=== PATIENT | female | born 1990 ===

== ENCOUNTER 2021-08-28 19:23 | Emergency (ER) | payer MEDICARE, SELFPAY ==
[2021-08-28 19:25] VITALS: BP 124/60; PULSE 74; RESP 16; TEMP 36.8; O2SAT 97; BMI 39.9
--- NOTE | 2021-08-28 20:06 | ED_ITS ---
HPI - Dental/Oral General Chief complaint: Dental/Oral Stated complaint: Dental pain, swollen face Time Seen by Provider: 08/28/21 19:57 History of Present Illness HPI Narrative: Patient complains of right-sided lower dental pain for several days and then noticed today she had some swelling around her right lower jaw, no difficulty breathing or swallowing no swelling under the tongue no fever Related Data Previous Rx's Medication Instructions Recorded acetaminophen 500 mg tablet 1,000 mg PO QID PRN #30 tab 08/28/21 amoxicillin 875 mg-potassium 1 tab PO Q12H 7 Days #14 tab 08/28/21 clavulanate 125 mg tablet (Augmentin) ibuprofen 600 mg tablet 600 mg PO Q6H PRN #20 tab 08/28/21 oxycodone 5 mg tablet 5 mg PO Q6H PRN #10 tab 08/28/21 Allergies Allergy/AdvReac Type Severity Reaction Status Date / Time No Known Allergies Allergy Verified 08/28/21 19:29 Review of Systems Verdana 4l Review of Systems: Verdana 4d Verdana 4d Positive for dental pain and facial swelling Negatives are no fever no chills no dizziness no weakness no headache no neck pain no difficulty breathing or swallowing no swelling under the tongue no drooling no chest pain no shortness of breathbreath Yes all other systems are reviewed and are negative PMFSH Past Medical History Source: nursing notes reviewed Medical History (Updated 08/28/21 @ 20:07 by LIDIA [place]) Asthma Social History Social History Advance Directives: No Advance Directives Information Provided: No Patient : No Physical Exam Verdana 4l Vital Signs: Verdana 4d Verdana 4d Vital Signs: Verdana 4d Verdana 4Bd Last Vital Signs Verdana 4d Metrology Technician New 4d Metrology Technician New 4d Temp 98.2 F 08/28/21 19:25 Metrology Technician New 4d Pulse 74 08/28/21 19:25 Metrology Technician New 4d Resp 16 08/28/21 19:25 BP 124/60 08/28/21 19:25 Pulse Ox 97 08/28/21 19:25 BMI result Body Mass Index 39.9 General appearance is no distress The sinuses are nontender The dental exam there is a right lower molar which is tender and decayed there is no fluctuant gum abscess there is no swelling under the tongue there is no trismus no drooling no impairment of breathing and swallowing the voice is normal Pharynx no redness swelling or exudate mucous membranes are moist Neck is supple The facial exam there is some soft tissue swelling without redness around the right side of the lower mandible, no fluctuance no break in the skin Respiratory no distress Extremities full range of motion x4 Course Course Course Narrative: Patient with dental infection is treated with Augmentin antibiotic and advised to follow closely with her dentist Discharge Plan Discharge Clinical Impression: Dental abscess Patient Disposition: Home, Self-Care Additional Instructions: You have a dental infection and need to see the dentist for so call the dentist on Monday We are giving you antibiotic Augmentin but even if swelling goes down and improves you still need dental care for the tooth Return to the ER any time any worse condition or any concerns Prescriptions: New amoxicillin-pot clavulanate [Augmentin] 875-125 mg tablet 1 tab PO Q12H 7 Days Qty: 14 0RF ibuprofen 600 mg tablet 600 mg PO Q6H PRN (Reason: pain) Qty: 20 0RF acetaminophen 500 mg tablet 1,000 mg PO QID PRN (Reason: pain) Qty: 30 0RF oxycodone 5 mg tablet 5 mg PO Q6H PRN (Reason: pain) Qty: 10 0RF Rx Instructions: Narcotic, no driving for 6 hours after taking this medication
[2021-08-28] MEDS: Amoxicillin/Potassium Clav 875 MG TABLET PO (20:15)
[2021-08-28] MEDS: Ibuprofen 600 MG TABLET PO (20:15)
== END 2021-08-28 20:51 | disposition home or self-care (01) ==
PROVIDERS: Emergency Provider Internal Medicine
DX: K04.7 Periapical abscess without sinus (principal); K08.89 Other specified disorders of teeth and supporting structures
CPT/HCPCS: 99283; 99284

== ENCOUNTER 2024-06-08 12:24 | Emergency (ER) | payer MEDICAID, SELFPAY ==
--- NOTE | 2024-06-08 12:50 | ED.SKABFB ---
HPI - Skin/Abscess/Foreign Bdy General Chief complaint: Skin/Abscess/Foreign Body Stated complaint: l armpit abscess Time Seen by Provider: 06/08/24 13:09 Source: patient Mode of arrival: ambulatory Limitations: no limitations History of Present Illness ED Provider: Qi Gabriel APRN HPI narrative: 34 yo female previously healthy here with complaints of left armpit abscess for several days. Patient reports history of same. She denies any fevers or chills. Related Data Previous Rx's ?Medication ?Instructions ?Recorded acetaminophen 500 mg tablet 1,000 mg (2 x 500 mg) PO QID PRN 08/28/21 pain #30 tabs amoxicillin 875 mg-potassium 1 tab PO Q12H 7 days #14 tabs 08/28/21 clavulanate 125 mg tablet (Augmentin) ibuprofen 600 mg tablet 600 mg PO Q6H PRN pain #20 tabs 08/28/21 oxycodone 5 mg tablet 5 mg PO Q6H PRN pain #10 tabs 08/28/21 sulfamethoxazole 800 1 tab PO BID 7 days #14 tabs 06/08/24 mg-trimethoprim 160 mg tablet (Bactrim DS) Allergies Allergy/AdvReac Type Severity Reaction Status Date / Time No Known Allergies Allergy Verified 06/08/24 12:52 Review of Systems Review of Systems: Yes all other systems are reviewed and are negative Constitutional: Constitutional: Reports no additional constitutional complaints, Denies body ache(s), Denies chills, Denies fever(s), Denies headache(s) and Denies weakness Eyes: Eyes: Reports no additional eye complaints and Denies change in vision ENT: Reports system reviewed and no additional complaints, except as documented, Denies dizziness, Denies headache(s), Denies nasal congestion, Denies nasal discharge and Denies neck pain Cardiovascular: Cardiovascular: Reports no additional cardiovascular complaints, Denies chest pain, Denies leg edema and Denies dyspnea Respiratory: Respiratory: Reports no additional respiratory complaints, Denies cough and Denies dyspnea Gastrointestinal: Gastrointestinal: Reports no additional gastrointestinal complaints, Denies abdominal pain, Denies diarrhea, Denies nausea and Denies vomiting Genitourinary: Genitourinary: Reports no additional female genitourinary complaints and Denies urinary incontinence Musculoskeletal: Musculoskeletal: Reports no additional musculoskeletal complaints, Denies back pain, Denies arthralgias, Denies joint swelling, Denies neck pain, Denies numbness and Denies tingling Integumentary/Breasts: Skin/Breast: Reports system reviewed and no additional complaints, except as docu, Reports swelling, Reports erythema and Denies rash Neurologic: Reports system reviewed and no additional complaints, except as documented, Denies Abnormal speech present, Denies dizziness, Denies headache(s), Denies numbness, Denies tingling and Denies weakness [facility] Past Medical History Attestation statement: The following information was validated with the patient. Source: old records reviewed and nursing notes reviewed Medical History Asthma Social History Social History Advance Directives: No Advance Directives Information Provided: No Physical Exam Vital Signs: Vital Signs: Last Vital Signs Temp 97.2 F 06/08/24 12:51 Pulse 87 06/08/24 12:51 Resp 18 06/08/24 12:51 BP 129/66 06/08/24 12:51 Pulse Ox 98 06/08/24 12:51 O2 Del Method Room Air 06/08/24 12:51 BMI result Body Mass Index 42.0 Const: General: cooperative, healthy appearing, comfortable and no acute distress Orientation/consciousness: patient oriented x3 Limitations: no limitations HEENT: Head: Yes normal to inspection Ears: hearing grossly normal bilaterally General nose exam: Normal external nose present Face and sinus: Yes normal facial exam Mouth: Normal oral and palatal mucosa present Throat: Yes posterior oropharynx normal Eyes: General: appearance normal, both eyes and all related structures Pupils: Equal, round and reactive pupils present Neck: Neck: Yes normal visual inspection Chest: Chest palpation & inspection: normal inspection of the chest Chest/axillae images: 1. Palpable medium-sized abscess with local erythema and swelling Resp: Effort & Inspection: normal respiratory effort Auscultation: clear to auscultation bilaterally Cardio: Rate: regular rate Rhythm: regular rhythm Peripheral pulses: Peripheral pulses 2+ throughout GI: Inspection: Yes normal to inspection Palpation (GI): Soft to palpation and nontender Auscultation: normal bowel sounds Back/Spine/Pelvis: Thoracic/Lumbar Spine: thoracic and lumbar spine normal to inspection Skin: General skin exam: no rashes or lesions noted Neuro: General: patient oriented x3, no focal motor deficits and normal sensation to monofilament Cranial nerves: Yes Equal, round and reactive pupils present Cognition (Neuro): normal cognition Speech: No Abnormal speech present Gait exam (Neuro): Normal gait present Motor exam (neuro): 5/5 motor strength present throughout Extrem: General: Yes normal to inspection Course Course Course Narrative: This is an RME performed by Tamar Walker CNP: Additional HPI, ROS, PE not included below will be deferred to primary provider. Patient is a 34-year-old female presents emergency department for evaluation of concern for an abscess to the left armpit, onset 2 days ago, progressively worsening. Increasing size and increase in pain. Admits to a history of prior in the past requiring incision and drainage but has been a few years. Plan: Will require incision and drainage Medications Administered Discontinued Medications Generic Name Dose Route Start Last Admin Trade Name Freq PRN Reason Stop Dose Admin Lidocaine HCl 2 ml 06/08/24 13:48 06/08/24 13:56 Lidocaine Hcl 1 % Mpf 2 Ml Vial INFILTRATI 06/08/24 13:49 2 ml ONCE ONE Administration Medical Decision Making Medical Decision Making MDM Narrative: 34 yo female previously healthy here with complaints of left armpit abscess for several days. Patient reports history of same. She denies any fevers or chills. Local medium sized abscess on exam See procedure note Will dc with antibiotic and recommendation return in 48 hours for wound check and packing removal Procedures Abscess I/D Site: other (Axilla) Side (if applicable): left Local Anesthetic: lidocaine 1% Amount of anesthesia used (mL): 4 Technique: incised with blade Sent for culture/gram staining?: No Irrigation: No Packing used?: iodoform Discharge Plan Discharge Clinical Impression: Abscess of skin or subcutaneous tissue Patient Disposition: Home, Self-Care Instructions: Abscess (ED) Additional Instructions: Return in 48 hours for packing removal and wound check Take Motrin or Tylenol for pain as needed Take the antibiotic as prescribed Prescriptions: New sulfamethoxazole-trimethoprim [Bactrim DS] 800-160 mg tablet 1 tab PO BID 7 Days Qty: 14 0RF No Action amoxicillin-pot clavulanate [Augmentin] 875-125 mg tablet 1 tab PO Q12H 7 Days Qty: 14 0RF ibuprofen 600 mg tablet 600 mg PO Q6H PRN (Reason: pain) Qty: 20 0RF acetaminophen 500 mg tablet 1,000 mg PO QID PRN (Reason: pain) Qty: 30 0RF oxycodone 5 mg tablet 5 mg PO Q6H PRN (Reason: pain) Qty: 10 0RF Rx Instructions: Narcotic, no driving for 6 hours after taking this medication Referrals: Physician,None [Primary Care Provider] - 1 week Stand Alone Forms: Work/School Release Print Language: Kosovan
[2024-06-08 12:51] VITALS: BP 129/66; PULSE 87; RESP 18; TEMP 36.2; O2SAT 98; BMI 42.0
[2024-06-08] MEDS: Lidocaine HCl 1 % MPF 2 ML VIAL INFILTRATI ×2 (13:56)
[2024-06-08 14:40] VITALS: BP 129/66; PULSE 87; RESP 18; TEMP 36.2; O2SAT 98
== END 2024-06-08 14:39 | disposition home or self-care (01) ==
PROVIDERS: Emergency Provider Emergency Medicine
DX: L02.412 Cutaneous abscess of left axilla (principal); J45.909 Unspecified asthma, uncomplicated; Z79.899 Other long term (current) drug therapy
CPT/HCPCS: 10060; 99282; 99284; J2003

== ENCOUNTER 2025-03-12 09:39 | Inpatient (IN) | payer MEDICAID, SELFPAY ==
--- NOTE | ~2025-03-12 | FL_ITS ---
EXAMINATION: FL GUIDANCE ONLY HISTORY: Right ureteral stone COMPARISON: Correlation is made with a CT of the abdomen and pelvis without contrast dated 03/12/2025. TECHNIQUE: Fluoroscopy time: 22.3 seconds. Cumulative Dose: 10.16 mGy. Images: 2. FINDINGS: Fluoroscopic spot films demonstrate placement of a right nephroureteral stent. FL/FL guidance in OR IMPRESSION: Fluoroscopy during procedure. Please see procedure report for additional information. Electronically signed by: Sawyer Lagos MD 03/14/2025 07:01 AM EDT
--- NOTE | ~2025-03-12 | CT_ITS ---
EXAMINATION: CT ABDOMEN PELVIS WITHOUT IV CONTRAST HISTORY: rule out right sided kidney stone COMPARISON: There are no prior studies available for comparison. TECHNIQUE: CT scan of the abdomen and pelvis was performed without contrast using standard departmental protocol. Coronal and sagittal reformatted images were generated and reviewed. Oral contrast material was not administered per department protocol. This CT exam was performed with one or more of the following dose reduction techniques: automated exposure control, adjustment of the mA and/or kV according to patient size, use of iterative reconstruction technique. DLP: 948 mGy-cm FINDINGS: LOWER CHEST: The visualized lung bases are clear. There is no pleural effusion. CARDIOVASCULATURE: The heart is normal in size. There is no pericardial effusion. LIVER: The liver is normal in size and contour. The liver has an unremarkable unenhanced appearance. GALLBLADDER / BILE DUCTS: The gallbladder is surgically absent. There is no intra or extrahepatic biliary ductal dilatation. SPLEEN: The spleen is normal in size and has an unremarkable unenhanced appearance. PANCREAS: The pancreas has an unremarkable unenhanced appearance. ADRENAL GLANDS: Unremarkable. KIDNEYS/RETROPERITONEUM: There is a punctate nonobstructing calculus at the lower pole of the right kidney. There is moderate right hydroureteronephrosis and perinephric soft tissue stranding secondary to a 3 mm UVJ calculus. No left renal calculi are identified. There is no left hydronephrosis. LYMPH NODES: No retroperitoneal lymphadenopathy is identified in the abdomen or pelvis. VASCULATURE: The abdominal aorta is normal in caliber. MESENTERY/PERITONEUM: No free fluid. No masses. There is no free intraperitoneal gas. STOMACH: The stomach is collapsed, limiting evaluation. SMALL BOWEL: The small bowel is normal in caliber. COLON: The colon is unremarkable. APPENDIX: Normal. URINARY BLADDER/PELVIC ORGANS: The urinary bladder is collapsed, limiting evaluation. The uterus and ovaries have an unremarkable unenhanced appearance. BONES / SOFT TISSUES: No suspicious bony or soft tissue abnormalities. CT/CT abdomen pelvis wo IV con IMPRESSION: Moderate right hydroureteronephrosis secondary to a 3 mm UVJ calculus. Additional punctate nonobstructing calculus at the lower pole of the right kidney. Electronically signed by: Sawyer Lagos MD 03/12/2025 11:53 AM EDT RP
[2025-03-12 09:43] VITALS: BP 146/72; PULSE 68; RESP 16; TEMP 36.8; O2SAT 96; BMI 39.4
--- NOTE | 2025-03-12 10:01 | ED.BACK ---
HPI - Back Pain/Injury General Chief Complaint: Back Pain/Injury Stated Complaint: R back pain Time Seen by Provider: 03/12/25 09:59 Source: patient Mode of arrival: ambulatory Limitations: no limitations History of Present Illness ED Provider: Parisa Bridges PA-C HPI Narrative: Patient seeks medical attention in emergency department today for evaluation of right side of flank pain that is associated with symptoms. Past medical history significant for kidney stone 15 years ago that passed on its own while she was . Patient states the pain was of sudden onset and woke up at 05:00 this morning. She reports positional changes makes no difference that she feels slightly nauseous and reports it as a proximally and Saima tendon it is colicky. She is not sure whether or not potentially could be a kidney stone. She is endorsing urgency but did not feel any painful urination or notice blood in it. She denies any falls or trauma does not feel like a muscle to her. She denies any vaginal symptoms are concern for STIs. She has not noticed any rashes. She has not tried to treat it in any way. No fevers or respiratory symptoms. Denies any abdominal discomfort no vomiting no diarrhea. She is able to tolerate PO fluids. Related Data Previous Rx's ?Medication ?Instructions ?Recorded acetaminophen 500 mg tablet 1,000 mg (2 x 500 mg) PO QID PRN 08/28/21 pain #30 tabs amoxicillin 875 mg-potassium 1 tab PO Q12H 7 days #14 tabs 08/28/21 clavulanate 125 mg tablet (Augmentin) ibuprofen 600 mg tablet 600 mg PO Q6H PRN pain #20 tabs 08/28/21 oxycodone 5 mg tablet 5 mg PO Q6H PRN pain #10 tabs 08/28/21 sulfamethoxazole 800 1 tab PO BID 7 days #14 tabs 06/08/24 mg-trimethoprim 160 mg tablet (Bactrim DS) Allergies Allergy/AdvReac Type Severity Reaction Status Date / Time No Known Allergies Allergy Verified 03/12/25 09:45 Review of Systems Review of Systems: Yes all other systems are reviewed and are negative [facility] Past Medical History Attestation statement: The following information was validated with the patient. Source: old records reviewed and nursing notes reviewed Medical History Asthma Social History Social History Advance Directives: No Advance Directives Information Provided: Yes Do you have a plan to hurt others: No Plan Physical Exam Vital Signs: Vital Signs: Last Vital Signs Temp 98.6 F 03/12/25 11:59 Pulse 60 03/12/25 11:59 Resp 20 03/12/25 11:59 BP 135/78 03/12/25 11:59 Pulse Ox 98 03/12/25 11:59 O2 Del Method Room Air 03/12/25 11:59 BMI result Body Mass Index 39.4 Const: General: cooperative, healthy appearing, no acute distress, well developed, alert, awake, Physically active and other (appears uncomfortable shaking leg and holding back) Nutritional Appearance: obese Limitations: no limitations HEENT: Head: Yes normal to inspection General nose exam: Normal external nose present Face and sinus: Yes normal facial exam Mouth: Normal oral and palatal mucosa present, lip normal, tongue normal and moist mucous membranes Throat: Yes posterior oropharynx normal Eyes: General: appearance normal, both eyes and all related structures Neck: Neck: Yes normal visual inspection Carotids: normal carotid upstroke Lymphatic: no lymphadenopathy noted Chest: Chest palpation & inspection: normal inspection of the chest and normal palpation of entire chest wall Resp: Effort & Inspection: normal respiratory effort and able to speak in complete sentences Auscultation: clear to auscultation bilaterally Cardio: Jugular venous distension: no JVD Rate: regular rate Rhythm: regular rhythm Peripheral pulses: Peripheral pulses 2+ throughout GI: Inspection: Yes normal to inspection and Yes Abdominal panniculus present Palpation (GI): Soft to palpation and No hepatosplenomegaly present Auscultation: normal bowel sounds Rectal Exam - Female: deferred : General: Yes bladder normal to palpation and Yes CVA tenderness on the right Bimanual exam- vagina & uterus: bladder normal to palpation Back/Spine/Pelvis: Back: CVA tenderness Thoracic/Lumbar Spine: thoracic and lumbar spine normal to inspection Skin: General skin exam: no rashes or lesions noted Medications Administered Discontinued Medications Generic Name Dose Route Start Last Admin Trade Name Freq PRN Reason Stop Dose Admin Acetaminophen 975 mg 03/12/25 10:05 03/12/25 10:15 Acetaminophen 325 Mg Tablet PO 03/12/25 10:06 975 mg ONCE ONE Administration Ketorolac Tromethamine 15 mg 03/12/25 10:05 03/12/25 10:17 Ketorolac Tromethamine 15 Mg/Ml Vial IM 03/12/25 10:06 15 mg ONCE ONE Administration Ondansetron HCl 4 mg 03/12/25 10:05 03/12/25 10:16 Ondansetron Odt 4 Mg Tab.Rapdis TRANSLINGU 03/12/25 10:06 4 mg ONCE ONE Administration Medical Decision Making Medical Decision Making [facility] Narrative: Well-appearing 35-year-old female with acute onset of right-sided flank pain that began approximately 5 hours ago upon waking up. Upon arrival to ED she is afebrile and nontoxic or ill-appearing. Vital signs stable. Past medical history significant for kidney stone. It does have a colicky like nature to it with urinary urgency kidney stone seems most likely at this point but were also consider pyelonephritis despite acute onset as well as UTI the bladder. No history of trauma not reproducible with certain movements this seems less likely to be musculoskeletal etiology. Abdomen is soft and nontender this is not felt to be related to intra-abdominal pathology of the hepatobiliary tract or colon. There is no rashes on her skin suggestive of shingles. We will provide analgesic control at this time with Toradol Tylenol and Zofran. CT of the abdomen and pelvis obtained to further evaluate for hydro versus stone. CBC is significant for leukocytosis with borderline left shift this could be in the setting of inflammation as well as infection but certainly still not consistent with sepsis she does not meet SIRS criteria. Urinalysis suggestive of infection versus inflammation with significant amount of blood in all amount of leukocytes present she does not have suprapubic tenderness this is likely due to kidney stone but we will update plan based on CT results. No GOYO., is negative. 1225: IMPRESSION: Moderate right hydroureteronephrosis secondary to a 3 mm UVJ calculus. Additional punctate nonobstructing calculus at the lower pole of the right kidney. Consult to urology placed. Plan to give patient 2 g of ceftriaxone to cover for infection as well as to admit to Medicine in the setting of an infected stone. Spoke to Dr. Prado who agreed to admitting patient and he plans to consult for procedure tomorrow with medicine team. Hospitalist consult placed they accepted the patient to Medicine discussed this overall presentation with the patient who agreed to plan. She endorses her pain as being low well-controlled not needing any opioid relief at this time. She remains afebrile and normotensive still not meeting sirs criteria. Blood cultures ordered prior to medication administration. Differential Diagnosis Differential Diagnoses: The differential diagnosis associated with the presentation includes See [facility] Admission/Observation Consideration of admission/observation: Escalation of care including admission/observation considered Consult Healthcare Provider Management of the patient was discussed with: Hospitalist and Principal Mechanical Engineer Dr. Prado, consulted and he will consult with medicine team for procedure tomorrow. Lab Data [facility] Lab Attestation statement: I reviewed the patient's lab results. 03/12/25 10:51 03/12/25 10:51 Labs: Lab Results 03/12/25 Range/Units 10:51 WBC 12.4 H (4.8-10.8) X10*3/uL RBC 4.07 L (4.20-5.50) X10*6/uL Hgb 13.2 (12.0-16.0) g/dl Hct 38.0 (37.0-47.0) % MCV 93.4 (80.0-98.0) fL MCH 32.4 (27.0-33.0) pg MCHC 34.7 (31.0-35.0) g/dl RDW 11.9 (11.0-16.0) % Plt Count 244 (160-400) X10*3/uL MPV 10.9 (9.4-12.3) fL Immature Gran % (Auto) 0.4 (0.0-0.4) % Neut % (Auto) 74.7 H (45-73) % Lymph % (Auto) 16.4 L (20-40) % [place] % (Auto) 7.7 (2-11) % Eos % (Auto) 0.5 (0-4) % Baso % (Auto) 0.3 (0-2) % Lymph # (Auto) 2.0 (1.2-4.9) X10*3/uL [place] # (Auto) 1.0 (0.1-1.2) X10*3/uL Eos # (Auto) 0.1 (0.0-0.4) X10*3/uL Baso # (Auto) 0.0 (0.0-0.2) X10*3/uL Abs Immat Gran (auto) 0.05 H (0.00-0.03) X10*3/uL Absolute Neuts (auto) 9.3 H (2.0-8.3) x10*3/uL Absolute Nucleated RBC 0.000 (0.0-0.012) X10*3/uL Nucleated RBC % (auto) 0.0 (0.0-0.2) /100WBC Sodium 144 (135-145) mmol/L Potassium 3.8 (3.3-5.1) mmol/L Chloride 113 H (96-108) mmol/L Carbon Dioxide 25 (22-29) mmol/L Anion Gap 10 L (12-20) BUN 10 (9-16) mg/dL Creatinine 0.63 (0.5-1.4) mg/dL Estim Creat Clear Calc 142.6 Estimated GFR > 60 Random Glucose 129 H (60-115) mg/dL Calcium 8.6 (8.4-10.2) mg/dL Total Bilirubin 0.8 (0.0-1.0) mg/dL AST 27 (5-31) U/L ALT 26 (0-31) U/L Alkaline Phosphatase 68 (39-117) U/L Total Protein 6.9 (6.5-8.0) g/dL Albumin 4.1 (3.5-5.0) g/dL Urine Color [place] A Urine Appearance Cloudy Urine pH 6.0 (5.0-9.0) Ur Specific [place] 1.015 (1.005-1.025) Urine Protein 30 (1+) H (Neg-Trace) mg/dL Urine Glucose (UA) Negative (Negative) mg/dL Urine Ketones Negative (Negative) mg/dL Urine Blood Large (3+) H (Negative) Urine Nitrite Negative (Negative) Ur Leukocyte Esterase Small (1+) H (Negative) Urine RBC >20 H (0-2) /HPF Urine WBC 11-20 H (0-5) /HPF Ur Squamous Epith Cells 3-5 (0-2) /HPF Urine Bacteria Trace (None Seen) Hyaline Casts 0-2 (0-2) /LPF Urine Test NEGATIVE (NEGATIVE) Independent Interpretation I performed an independent interpretation of an: CT Scan Interpretation: hydronephrosis right kidney, likely stone near bladder Radiology Impression Discussion of test interpretation with radiology: I have reviewed the radiologist's reading. Radiologist Impression: IMPRESSION: Moderate right hydroureteronephrosis secondary to a 3 mm UVJ calculus. Additional punctate nonobstructing calculus at the lower pole of the right kidney. Tests considered The following testing was considered but not selected: Would have considered CT of the abdomen and pelvis with contrast had patient's presentation been more consistent with other intra-abdominal pathology other than renal system. Discharge Plan Discharge Clinical Impression: Hydronephrosis with ureteral calculus, UTI (urinary tract infection) Patient Disposition: Admitted As Inpatient
--- OUTSIDE RECORDS SUMMARY | 2025-03-12 10:37 | XMS_ITS | Clinical Summary ---
Author Organization [employer] Address [address] [place] [address] Care Team Providers Care Meal Cook Name Role Phone Unavailable Primary Care Provider Unavailabl e Social History Tobacco Use Types Packs/Day Years Used Date Smoking Tobacco: Never Assessed Comments Unknown Sex and Gender Information Value Date Recorded Sex Assigned at Not on file Legal Sex Female 1:47 PM EST Gender Identity Not on file Sexual Orientation Not on file Plan of Treatment Health Maintenance Due Date Last Done Comments Depression Screening 1991 HIV Screening 1991 SDOH Screening 1991 Disability Screening 1991 Alcohol/Substance Use Screening 2003 Tobacco Screening 2003 Family Planning (PISQ) 2006 HPV Vaccines (1 - 3-dose series) 2006 Hepatitis C Screening 2009 DTaP/Tdap/Td Vaccines (1 - Tdap) 2010 Hepatitis B Vaccines (1 of 3 - 19+ 3-dose series) 2010 Pap Smear 01/23/2012 Cervical Cancer Screening 2021 HPV/Cotest 2021 COVID-19 Vaccine ( - 2023-2 5 season) 2024 Influenza Vaccine (#1) 2025 Zoster Vaccines (1 of 2) 2041 RSV Patients and Pa tients Aged 60 years or older (1 - 1-dose 75+ series) 2066 HIB Vaccines Aged Out No longer eligi ble based on patient's age to complete this topic Hepatitis A Vaccines Aged Out No long er eligible based on patient's age to complete this topic IPV Vaccines Aged Out No longer eligi ble based on patient's age to complete this topic Meningococcal B Vaccine Aged Out No l onger eligible based on patient's age to complete this topic Meningococcal Vaccine Aged Out No cj johana eligible based on patient's age to complete this topic Pneumococcal Vaccine: Pediat rics (0 to 5 Years) and At-Risk Patients (6 to 49) Years Aged Out No longer eligible b ased on patient's age to complete this topic RSV under 20 months Aged Out No longe r eligible based on patient's age to complete this topic Rotavirus Vaccines Aged Out No longer eligible based on patient's age to complete this topic
[2025-03-12 11:00] LABS: MANUAL DIFF FLAG NO
[2025-03-12 11:05] LABS: Hematocrit 38.0 % (37.0-47.0); Hemoglobin 13.2 g/dl (12.0-16.0); Imm Gran Abs Auto 0.05 X10*3/uL (0.00-0.03); Imm Gran Pct Auto 0.4 % (0.0-0.4); Lymphocytes Absolute Auto 2.0 X10*3/uL (1.2-4.9); Mean Corpuscular HGB Conc 34.7 g/dl (31.0-35.0); Mean Corpuscular Hemoglobin 32.4 pg (27.0-33.0); Mean Corpuscular Volume 93.4 fL (80.0-98.0); NRBC Abs Auto 0.000 X10*3/uL (0.0-0.012); NRBC Pct Auto 0.0 /100WBC (0.0-0.2); Platelet Count 244 X10*3/uL (160-400); Red Blood Count 4.07 X10*6/uL (4.20-5.50); White Blood Count 12.4 X10*3/uL (4.8-10.8)
[2025-03-12 11:08] LABS: UPreg QC Valid YES
[2025-03-12 11:09] LABS: Appearance Urine Cloudy; Glucose Urine UA Negative (Negative); PH 6.0 (5.0-9.0); Specific Gravity - Urine 1.015 (1.005-1.025); UMIC TRIGGER UACC YES
[2025-03-12 11:12] LABS: UACC Culture Trigger YES
[2025-03-12 11:19] LABS: Alanine Aminotransferase 26 U/L (0-31); Albumin Level 4.1 g/dL (3.5-5.0); Alkaline Phosphatase 68 U/L (39-117); Anion Gap 10 (12-20); Aspartate Amino Transferase 27 U/L (5-31); Blood Urea Nitrogen 10 mg/dL (9-16); Calcium 8.6 mg/dL (8.4-10.2); Carbon Dioxide 25 mmol/L (22-29); Chloride 113 mmol/L (96-108); Creatinine Clr Calc Pharmacy 142.6; Estimated Glomerular Filt Rate > 60; Potassium 3.8 mmol/L (3.3-5.1); Sodium 144 mmol/L (135-145); Total Protein 6.9 g/dL (6.5-8.0)
[2025-03-12 11:59] VITALS: BP 135/78; PULSE 60; RESP 20; TEMP 37; O2SAT 98
--- NOTE | 2025-03-12 12:54 | PC.NURSE ---
Per LIDIA Bridges no lactic at this time as pt does not meet full sepsis criteria. 22g IV access established in R dorsal hand, blood cultures x2 obtained, rocephin 2gm given per MAR
--- NOTE | 2025-03-12 13:04 | P.HPHOSP_ITS ---
History of Present Illness Date of Service: 03/12/25 Attending physician on admission: Foreign Hameed Chief Complaint: right flank pain This is a 35-year-old female with h/o asthma who presents to the emergency department with right flank pain. Onset of pain early this morning with associated urinary urgency. She denies any dysuria, fever, chills. In the emergency department workup was significant for leukocytosis of 12.4, urinalysis with 3+ blood and greater than [address] scan showed moderate right hydroureteronephrosis secondary to a 3 mm UVJ calculus. The emergency department discussed the case with the urology felt that the patient should be admitted to the medical service due to possible infection. She received a dose of IV ceftriaxone for possible infected stone in the decision was made to admit her for further management. Review of Systems 2 Review of Systems: Yes all other systems are reviewed and are negative Constitutional: Constitutional: Denies chills and Denies fever(s) Cardiovascular: Cardiovascular: Denies chest pain, Denies palpitations and Denies dyspnea Respiratory: Respiratory: Denies cough and Denies dyspnea Gastrointestinal: Gastrointestinal: Denies vomiting Endocrine: Endocrine: Denies palpitations [facility] Medical History Asthma Social History (Updated 03/12/25 @ 13:[address]) Alcohol intake: current Alcohol intake frequency: holidays/special occasions only Patient Tobacco Use Status: Current everyday Tobacco user Tobacco use type: Cigarette Substance Use Type: Marijuana Advance Directives: No Advance Directives Information Provided: Yes Do you have a plan to hurt others: No Plan Meds Allergies Allergy/AdvReac Type Severity Reaction Status Date / Time No Known Allergies Allergy Verified 03/12/25 09:45 Physical Exam 2 Vital Signs and Narrative: Vital Signs: Last Vital Signs Temp 98.6 F 03/12/25 11:59 Pulse 60 03/12/25 11:59 Resp 20 03/12/25 11:59 BP 135/78 03/12/25 11:59 Pulse Ox 98 03/12/25 11:59 O2 Del Method Room Air 03/12/25 11:59 BMI result Body Mass Index 39.4 Const: General: cooperative, comfortable, alert and awake Nutritional Appearance: obese Resp: Effort & Inspection: normal respiratory effort and able to speak in complete sentences Cardio: Rate: regular rate GI: Inspection: No distended Palpation (GI): Soft to palpation : Other: no CVA tenderness at this time, she states she did have pain there earlier Results Labs 03/12/25 10:51 03/12/25 10:51 Labs: Laboratory Results - last 24 hr 03/12/25 10:51 MCV 93.4 MCH 32.4 MCHC 34.7 RDW 11.9 Plt Count 244 MPV 10.9 Immature Gran % (Auto) 0.4 Neut % (Auto) 74.7 H Lymph % (Auto) 16.4 L [place] % (Auto) 7.7 Eos % (Auto) 0.5 Baso % (Auto) 0.3 Lymph # (Auto) 2.0 [place] # (Auto) 1.0 Eos # (Auto) 0.1 Baso # (Auto) 0.0 Abs Immat Gran (auto) 0.05 H Absolute Neuts (auto) 9.3 H Absolute Nucleated RBC 0.000 Nucleated RBC % (auto) 0.0 Anion Gap 10 L Estim Creat Clear Calc 142.6 Estimated GFR > 60 Random Glucose 129 H Calcium 8.6 Total Bilirubin 0.8 AST 27 ALT 26 Alkaline Phosphatase 68 Total Protein 6.9 Albumin 4.1 Urine Color Cloud A Urine Appearance Cloudy Urine pH 6.0 Ur Specific [place] 1.015 Urine Protein 30 (1+) H Urine Glucose (UA) Negative Urine Ketones Negative Urine Blood Large (3+) H Urine Nitrite Negative Ur Leukocyte Esterase Small (1+) H Urine RBC >20 H Urine WBC 11-20 H Ur Squamous Epith Cells 3-5 Urine Bacteria Trace Hyaline Casts 0-2 Urine Test NEGATIVE Imaging Radiologist's Impressions: Impressions Abdomen/Pelvis CT 03/12/25 10:25 IMPRESSION: Moderate right hydroureteronephrosis secondary to a 3 mm UVJ calculus. Additional punctate nonobstructing calculus at the lower pole of the right kidney. Electronically signed by: Sawyer Lagos MD 03/12/2025 11:53 AM EDT Assessment and Plan (1) Hydronephrosis with ureteral calculus: Status: Acute Plan This is a 35-year-old female with history of mild intermittent asthma who presents to the emergency department with right flank pain found to have obstructing right UVJ stone UTI and moderate right hydroureteronephrosis due to 3 mm UVJ obstructing stone No evidence of sepsis IV ceftriaxone Follow urine culture, blood cultures Urology consult for possible intervention. NPO at midnight IV fluid, pain control Mild intermittent asthma No acute exacerbation P.r.n. albuterol Tobacco use disorder Smoking cessation advised Declines NRT DVT prophylaxis-low risk-early ambulation, mechanical devices Quality Stroke Does the patient have a stroke diagnosis?: No VTE Prior VTE?: No VTE Risk Level:: Medical - low VTE Device Contraindication: N/A - Device Ordered VTE Drug Contraindication: Treatment Not Indicated
[2025-03-12] MEDS: Lactated Ringers 1,000 ML 125 ML IVCONT ×2 (13:29→20:39)
[2025-03-12 15:24] VITALS: RESP 16
[2025-03-12 15:26] VITALS: BP 138/89; PULSE 71; RESP 16; TEMP 36.6; O2SAT 99
--- NOTE | 2025-03-12 15:32 | PHA.MEDREC ---
Addendum entered by Kleber Molina [facility] 03/12/25 15:39: med rec reviewed Original Note: Pharmacy Consult ? Medication Reconciliation Pharmacy has completed the medication reconciliation. Pt states she just alternates between using Ibuprofen and Tylenol as needed for pain and takes nothing else at this time for medicaitons.
--- NOTE | 2025-03-12 16:00 | PC.NURSE ---
Assuming care of pt after transfer to OF unit. Arrives a&ox4, in NAD, denies any pain after MOP IVP. Fluids running through #22 R hand. Denies home medications. Aware of plan for care and diet requirements.
--- NOTE | 2025-03-12 16:30 | PM.UROCN ---
History of Present Illness Consult details Consult date: 03/12/25 Narrative: CC: Right distal ureteric stone 35-year-old female Presentation to emergency room with onset of pain early this morning. Associated with urinary urgency. Denies fever, chills, dysuria. UA shows 3+ blood, positive RBC, negative nitrite. WBC 12.4, calcium 8.6, creatinine 0.6 Imaging - CT moderate right hydroureteronephrosis secondary to a 3 mm UVJ calculus. Recommend admission to Medicine for antibiotics and medical expulsion attempt Will give single dose prednisone 20 mg If fails to pass stone overnight recommend intervention tomorrow afternoon Keep NPO after 2400 Review of Systems Constitutional: Constitutional: Reports as per HPI and Reports no additional constitutional complaints Cardiovascular: Cardiovascular: Reports as per HPI and Reports no additional cardiovascular complaints Respiratory: Respiratory: Reports as per HPI and Reports no additional respiratory complaints Gastrointestinal: Gastrointestinal: Reports as per HPI and Reports no additional gastrointestinal complaints Genitourinary: Genitourinary: Reports as per HPI Musculoskeletal: Musculoskeletal: Reports no additional musculoskeletal complaints and Reports as per HPI Neurologic: Reports system reviewed and no additional complaints, except as documented and Reports as per HPI [facility] Past Medical History Medical History Asthma Social History Social History (Updated 03/12/25 @ 13:[address]) Alcohol intake: current Alcohol intake frequency: holidays/special occasions only Patient Tobacco Use Status: Never used Tobacco Tobacco use type: Cigarette Substance Use Type: Marijuana Advance Directives: No Advance Directives Information Provided: Yes Do you have a plan to hurt others: No Plan Nutrition Risks: No Nutritional Risk Meds Allergies Allergy/AdvReac Type Severity Reaction Status Date / Time No Known Allergies Allergy Verified 03/12/25 09:45 Active Medications: Current Medications Acetaminophen (Acetaminophen 325 Mg Tablet) 650 mg PO Q6H PRN PRN Reason: Pain, Mild 1-3,fever,headache Calcium Carbonate (Calcium Carbonate 750 Mg Tab.Chew) 750 mg PO Q4H PRN PRN Reason: Heartburn Ceftriaxone Sodium (Ceftriaxone Sodium 1 Gm Vial) 1 gm IVPUSH Q24H [facility] Lactated Ringer's (Lr) 1,000 mls @ 125 mls/hr IVCONT .Q8H [facility] Last Admin: 03/12/25 13:29 Dose: 125 mls/hr Ketorolac Tromethamine (Ketorolac Tromethamine 15 Mg/Ml Vial) 15 mg IVPUSH Q6H PRN PRN Reason: Pain, Moderate(Pain Scale 4-6) Magnesium Hydroxide (Milk Of Magnesia 30 Ml Oral.Susp) 30 ml PO DAILY PRN PRN Reason: Constipation Melatonin (Melatonin 3 Mg Tablet) 6 mg PO BEDTIME PRN PRN Reason: Insomnia Morphine Sulfate (Morphine Sulfate 2 Mg/Ml Cartridge) 2 mg IVPUSH Q4H PRN; Protocol PRN Reason: Pain, Severe (Pain Scale 7-10) Last Admin: 03/12/25 15:24 Dose: 2 mg Prednisone (Prednisone 20 Mg Tablet) 20 mg PO DAILY [facility] Last Admin: 03/12/25 15:24 Dose: 20 mg Sodium Chloride (0.9 % Sodium Chloride Flush 3 Ml Syringe) 3 ml IVFLUSH QSHIFT [facility] Last Admin: 03/12/25 14:12 Dose: Not Given Home Medications ?Medication ?Instructions ?Recorded ?Confirmed ?Last Taken ?Type acetaminophen 500 mg tablet 1,000 mg PO Q6H PRN pain 03/12/25 03/12/25 Unknown History ibuprofen 200 mg tablet 400 mg PO Q8H PRN Pain 03/12/25 03/12/25 Unknown History Physical Exam Vital Signs: Vital Signs: Last Vital Signs Temp 98 F 03/12/25 15:26 Pulse 71 03/12/25 15:26 Resp 16 03/12/25 15:26 BP 138/89 03/12/25 15:26 Pulse Ox 99 03/12/25 15:26 O2 Del Method Room Air 03/12/25 15:26 BMI result Body Mass Index 39.4 Const: General: cooperative, healthy appearing, comfortable and no acute distress Orientation/consciousness: patient oriented x3 HEENT: Face and sinus: Yes normal facial exam Mouth: moist mucous membranes Neck: Neck: Yes normal visual inspection, Yes full ROM and Yes trachea midline Chest: Chest palpation & inspection: normal inspection of the chest Resp: Effort & Inspection: normal respiratory effort, able to speak in complete sentences and no respiratory distress GI: Inspection: Yes normal to inspection Back/Spine/Pelvis: Cervical Spine: normal cervical lordosis Thoracic/Lumbar Spine: thoracic and lumbar spine normal to inspection Skin: General skin exam: no rashes or lesions noted Neuro: General: patient oriented x3, tone normal and moves all extremities Extrem: General: Yes normal to inspection and Yes capillary refill normal Results Labs 03/12/25 10:51 03/12/25 10:51 Labs: Abnormal lab results 03/12/25 Range/Units 10:51 WBC 12.4 H (4.8-10.8) X10*3/uL RBC 4.07 L (4.20-5.50) X10*6/uL Neut % (Auto) 74.7 H (45-73) % Lymph % (Auto) 16.4 L (20-40) % Abs Immat Gran (auto) 0.05 H (0.00-0.03) X10*3/uL Absolute Neuts (auto) 9.3 H (2.0-8.3) x10*3/uL Chloride 113 H (96-108) mmol/L Anion Gap 10 L (12-20) Random Glucose 129 H (60-115) mg/dL Urine Color [place] A Urine Protein 30 (1+) H (Neg-Trace) mg/dL Urine Blood Large (3+) H (Negative) Ur Leukocyte Esterase Small (1+) H (Negative) Urine RBC >20 H (0-2) /HPF Urine WBC 11-20 H (0-5) /HPF Short CBC 03/12/25 Range/Units 10:51 WBC 12.4 H (4.8-10.8) X10*3/uL Hgb 13.2 (12.0-16.0) g/dl Hct 38.0 (37.0-47.0) % Plt Count 244 (160-400) X10*3/uL BMP 03/12/25 10:51 Sodium 144 Potassium 3.8 Chloride 113 H Carbon Dioxide 25 BUN 10 Creatinine 0.63 Calcium 8.6 Liver Function 03/12/25 Range/Units 10:51 Total Bilirubin 0.8 (0.0-1.0) mg/dL AST 27 (5-31) U/L ALT 26 (0-31) U/L Alkaline Phosphatase 68 (39-117) U/L Albumin 4.1 (3.5-5.0) g/dL Urine 03/12/25 Range/Units 10:51 Urine Color [place] A Urine Appearance Cloudy Urine pH 6.0 (5.0-9.0) Ur Specific [place] 1.015 (1.005-1.025) Urine Protein 30 (1+) H (Neg-Trace) mg/dL Urine Glucose (UA) Negative (Negative) mg/dL Urine Test NEGATIVE (NEGATIVE) All other labs normal. Assessment and Plan (1) Hydronephrosis with ureteral calculus: Status: Acute Plan Trial of stone passage Intervention if fails - Risks, benefits and alternatives to therapy were discussed. These include but are not limited to infection, bleeding, damage to local organs and tissues, need for further interventions. Anesthetic risks regarding cardiac arrhythmia, blood clots, and potential mortality were discussed. The patient understands the typical recovery time and the outpatient nature of the procedure. After consideration of these risks the patient gives full informed consent and they wish to move ahead with the procedure. Cystoscopy, right retrograde, right ureteroscopy with laser lithotripsy and stent placement Procedures Date of Service Date of Service: 03/12/25
[2025-03-13] VITALS (9 sets, daily range): BP systolic 114–145; BP diastolic 55–81; PULSE 65–115; RESP 12–18; TEMP 36.1–37.1; O2SAT 96–99; BMI 39.4
[2025-03-13] MEDS: Lactated Ringers 1,000 ML 125 ML IVCONT ×2 (04:33→13:43)
[2025-03-13 05:30] LABS: Hematocrit 36.2 % (37.0-47.0); Hemoglobin 12.5 g/dl (12.0-16.0); Mean Corpuscular HGB Conc 34.5 g/dl (31.0-35.0); Mean Corpuscular Hemoglobin 31.8 pg (27.0-33.0); Mean Corpuscular Volume 92.1 fL (80.0-98.0); NRBC Abs Auto 0.000 X10*3/uL (0.0-0.012); NRBC Pct Auto 0.0 /100WBC (0.0-0.2); Platelet Count 219 X10*3/uL (160-400); Red Blood Count 3.93 X10*6/uL (4.20-5.50); White Blood Count 8.3 X10*3/uL (4.8-10.8)
[2025-03-13 05:48] LABS: Anion Gap 10 (12-20); Blood Urea Nitrogen 6 mg/dL (9-16); Calcium 8.3 mg/dL (8.4-10.2); Carbon Dioxide 21 mmol/L (22-29); Chloride 113 mmol/L (96-108); Creatinine Clr Calc Pharmacy 160.5; Estimated Glomerular Filt Rate > 60; Potassium 4.1 mmol/L (3.3-5.1); Sodium 140 mmol/L (135-145)
--- NOTE | 2025-03-13 13:36 | MHC.CM.PN ---
Patient lives in an apt w/ her two teenagers. Functionally independent. Denies use of DME or services. PCP @ [facility] No HCP. CM provided education and offered assistance. Patient declines at this time. DP: Goal is home self care, do not anticipate the need for services. Mother to transport. CM will continue to follow.
--- NOTE | 2025-03-13 13:41 | HO.PM.IMPN ---
Subjective Subjective Date of Service: 03/13/25 Interval History: seen and examined this morning follow up for right hydro with UVJ stone right sided pain improving; no fever Review of Systems Review of Systems: Yes all other systems are reviewed and are negative Constitutional Constitutional: Denies chills and Denies fever(s) Cardiovascular Cardiovascular: Denies chest pain, Denies palpitations and Denies dyspnea Respiratory Respiratory: Denies cough and Denies dyspnea Endocrine Endocrine: Denies palpitations Physical Exam Vital Signs: Vital Signs: Last Vital Signs Temp 97.0 F 03/13/25 11:04 Pulse 77 03/13/25 11:04 Resp 12 03/13/25 11:04 BP 128/68 03/13/25 11:04 Pulse Ox 98 03/13/25 11:04 O2 Del Method Room Air 03/13/25 11:04 BMI result Body Mass Index 39.4 Const: General: cooperative, comfortable, alert and awake Nutritional Appearance: obese Orientation/consciousness: patient oriented x3 Resp: Effort & Inspection: normal respiratory effort and able to speak in complete sentences Cardio: Rate: regular rate GI: Inspection: No distended Palpation (GI): Soft to palpation : Other: no CVA tenderness Neuro: General: patient oriented x3 Objective Data Active Medications Acetaminophen (Acetaminophen 325 Mg Tablet) 650 mg PO Q6H PRN PRN Reason: Pain, Mild 1-3,fever,headache Calcium Carbonate (Calcium Carbonate 750 Mg Tab.Chew) 750 mg PO Q4H PRN PRN Reason: Heartburn Ceftriaxone Sodium (Ceftriaxone Sodium 1 Gm Vial) 1 gm IVPUSH Q24H [facility] Last Admin: 03/13/25 13:04 Dose: 1 gm Documented By: JAY Lactated Ringer's (Lr) 1,000 mls @ 125 mls/hr IVCONT .Q8H [facility] Last Admin: 03/13/25 04:33 Dose: 125 mls/hr Documented By: DAIANA Ketorolac Tromethamine (Ketorolac Tromethamine 15 Mg/Ml Vial) 15 mg IVPUSH Q6H PRN PRN Reason: Pain, Moderate(Pain Scale 4-6) Last Admin: 03/13/25 04:35 Dose: 15 mg Documented By: DAIANA Magnesium Hydroxide (Milk Of Magnesia 30 Ml Oral.Susp) 30 ml PO DAILY PRN PRN Reason: Constipation Melatonin (Melatonin 3 Mg Tablet) 6 mg PO BEDTIME PRN PRN Reason: Insomnia Morphine Sulfate (Morphine Sulfate 2 Mg/Ml Cartridge) 2 mg IVPUSH Q4H PRN; Protocol PRN Reason: Pain, Severe (Pain Scale 7-10) Last Admin: 03/13/25 11:21 Dose: 2 mg Documented By: JAY Ondansetron HCl (Ondansetron Hcl 4 Mg/2 Ml Vial) 4 mg IVPUSH Q6H PRN PRN Reason: Nausea and Vomiting Last Admin: 03/12/25 19:52 Dose: 4 mg Documented By: DAIANA Prednisone (Prednisone 20 Mg Tablet) 20 mg PO DAILY [facility] Last Admin: 03/13/25 08:31 Dose: 20 mg Documented By: RICARDA Sodium Chloride (0.9 % Sodium Chloride Flush 3 Ml Syringe) 3 ml IVFLUSH QSHIFT [facility] Last Admin: 03/13/25 08:26 Dose: Not Given Documented By: RICARDA Non-Admin Reason: IV Running Labs 03/13/25 03:50 03/13/25 03:50 Labs: Laboratory Results - last 24 hr 03/13/25 03:50 MCV 92.1 MCH 31.8 MCHC 34.5 RDW 11.8 Plt Count 219 MPV 11.8 Absolute Nucleated RBC 0.000 Nucleated RBC % (auto) 0.0 Anion Gap 10 L Estim Creat Clear Calc 160.5 Estimated GFR > 60 Random Glucose 136 H Calcium 8.3 L Microbiology Microbiology Results: Microbiology 03/12/25 Unknown Urine Culture - Final Urine clean catch - Clean Catch Midstream No growth. Assessment and Plan (1) Hydronephrosis with ureteral calculus: Status: Acute Plan This is a 35-year-old female with history of mild intermittent asthma who presents to the emergency department with right flank pain found to have obstructing right UVJ stone moderate right hydroureteronephrosis due to 3 mm UVJ obstructing stone No evidence of sepsis urine culture and blood cultures both negative to date Urology consult - plan for cystoscopy and stent placement continue IV abx for now, will discuss with urology IV fluid, pain control Mild intermittent asthma No acute exacerbation P.r.n. albuterol Tobacco use disorder Smoking cessation advised Declines NRT DVT prophylaxis-low risk-early ambulation, mechanical devices Quality Stroke Does the patient have a stroke diagnosis?: No VTE Prior VTE?: No VTE Risk Level:: Medical - low VTE Device Contraindication: N/A - Device Ordered VTE Drug Contraindication: Treatment Not Indicated
[2025-03-13] MEDS: Lactated Ringers 1,000 ML 80 ML IVCONT (14:13)
--- NOTE | 2025-03-13 15:03 | PC.NURSE ---
PATIENT WAITING IN PACU BED REPORT GIVEN TO DEAN RHODES.
--- NOTE | 2025-03-13 16:02 | P.PNUR_ITS ---
Subjective Subjective Date of Service: 03/13/25 Interval history: White count resolving Temperature down Moderate resolution of pain on right side Uncertain as to where the stone has passed Would still recommend cystoscopy with right retrograde possible ureteroscopy Physical Exam 2 Vital Signs: Vital Signs: Last Vital Signs Temp 97.5 F 03/13/25 14:09 Pulse 77 03/13/25 14:09 Resp 16 03/13/25 14:09 BP 132/69 03/13/25 14:09 Pulse Ox 98 03/13/25 14:09 O2 Del Method Room Air 03/13/25 14:09 BMI result Body Mass Index 39.4 Const: General: cooperative, healthy appearing, comfortable and no acute distress Orientation/consciousness: patient oriented x3 HEENT: Face and sinus: Yes normal facial exam Mouth: moist mucous membranes Neck: Neck: Yes normal visual inspection, Yes full ROM and Yes trachea midline Chest: Chest palpation & inspection: normal inspection of the chest Resp: Effort & Inspection: normal respiratory effort, able to speak in complete sentences and no respiratory distress GI: Inspection: Yes normal to inspection Back/Spine/Pelvis: Cervical Spine: normal cervical lordosis Thoracic/Lumbar Spine: thoracic and lumbar spine normal to inspection Skin: General skin exam: no rashes or lesions noted Neuro: General: patient oriented x3, tone normal and moves all extremities Extrem: General: Yes normal to inspection and Yes capillary refill normal Urology Results Labs 03/13/25 03:50 03/13/25 03:50 Labs: Laboratory Results - last 24 hr 03/13/25 03:50 WBC 8.3 RBC 3.93 L Hgb 12.5 Hct 36.2 L MCV 92.1 MCH 31.8 MCHC 34.5 RDW 11.8 Plt Count 219 MPV 11.8 Absolute Nucleated RBC 0.000 Nucleated RBC % (auto) 0.0 Sodium 140 Potassium 4.1 Chloride 113 H Carbon Dioxide 21 L Anion Gap 10 L BUN 6 L Creatinine 0.56 Estim Creat Clear Calc 160.5 Estimated GFR > 60 Random Glucose 136 H Calcium 8.3 L Progress Note: A&P Assessment and plan (1) Hydronephrosis with ureteral calculus: Status: Acute Plan Risks, benefits and alternatives to therapy were discussed. These include but are not limited to infection, bleeding, damage to local organs and tissues, need for further interventions. Anesthetic risks regarding cardiac arrhythmia, blood clots, and potential mortality were discussed. The patient understands the typical recovery time and the outpatient nature of the procedure. After consideration of these risks the patient gives full informed consent and they wish to move ahead with the procedure. Cystoscopy, right retrograde, right ureteroscopy with laser lithotripsy stent placement Time Spent With Patient Time: Total time managing care of this patient today ____ minutes. Progress Note: Quality Stroke Does the patient have a stroke diagnosis?: No
--- NOTE | 2025-03-13 16:02 | P.HPSUR_ITS ---
Pre-Procedural Eval Section A - 24 Hr Update-Section A only Date of Service: 03/13/25 The patient is an INPATIENT: Yes Changes since office visit: No Cold of Flu in the past 2 weeks, No New Medical Problems, No Changes in Medication and No Patient answered all questions The patient has been examined within 24 hours of the surgical procedure. The History & Physical has been completed within 30 days and I have reviewed it.: Yes Section B - Complete if H&P > 30 days Chief Complaint: [place] with obstructing stone Allergies: Allergies Allergy/AdvReac Type Severity Reaction Status Date / Time No Known Allergies Allergy Verified 03/12/25 09:45 Plan I have reviewed the history and physical and performed a pertinent physical examination on my patient. No changes have occurred unless specified. Time Spent With Patient Time: Total time managing care of this patient today ____ minutes.
--- NOTE | 2025-03-13 16:12 | HO.ANESPROP2 ---
[facility] Active Problems Active Problems: All Active Problems UTI (urinary tract infection) (Acute) Hydronephrosis with ureteral calculus (Acute) Past Medical History Medical History Asthma Family History Family history of problems with anesthesia: No Surgical History History of Problems with Anesthesia: No Social History Social History (Updated 03/12/25 @ 13:[address]) Household Members: Family Housing: House Are you a primary health care facility administrator to a significant other at home: No Do you presently have visiting nurse or other home services: No Alcohol intake: current Alcohol intake frequency: holidays/special occasions only Patient Tobacco Use Status: Current everyday Tobacco user Tobacco use type: Cigarette Second Hand Smoke Exposure: No Substance Use Type: Marijuana service: No Meds Allergies Allergy/AdvReac Type Severity Reaction Status Date / Time No Known Allergies Allergy Verified 03/12/25 09:45 Active Medications: Current Medications Acetaminophen (Acetaminophen 325 Mg Tablet) 650 mg PO Q6H PRN PRN Reason: Pain, Mild 1-3,fever,headache Calcium Carbonate (Calcium Carbonate 750 Mg Tab.Chew) 750 mg PO Q4H PRN PRN Reason: Heartburn Ceftriaxone Sodium (Ceftriaxone Sodium 1 Gm Vial) 1 gm IVPUSH Q24H [facility] Last Admin: 03/13/25 13:04 Dose: 1 gm Lactated Ringer's (Lr) 1,000 mls @ 125 mls/hr IVCONT .Q8H [facility] Last Admin: 03/13/25 13:43 Dose: 125 mls/hr Lactated Ringer's (Lr) 1,000 mls @ 80 mls/hr IVCONT .[id number] [facility] Last Admin: 03/13/25 14:13 Dose: 80 mls/hr Ketorolac Tromethamine (Ketorolac Tromethamine 15 Mg/Ml Vial) 15 mg IVPUSH Q6H PRN PRN Reason: Pain, Moderate(Pain Scale 4-6) Last Admin: 03/13/25 04:35 Dose: 15 mg Magnesium Hydroxide (Milk Of Magnesia 30 Ml Oral.Susp) 30 ml PO DAILY PRN PRN Reason: Constipation Melatonin (Melatonin 3 Mg Tablet) 6 mg PO BEDTIME PRN PRN Reason: Insomnia Morphine Sulfate (Morphine Sulfate 2 Mg/Ml Cartridge) 2 mg IVPUSH Q4H PRN; Protocol PRN Reason: Pain, Severe (Pain Scale 7-10) Last Admin: 03/13/25 11:21 Dose: 2 mg Ondansetron HCl (Ondansetron Hcl 4 Mg/2 Ml Vial) 4 mg IVPUSH Q6H PRN PRN Reason: Nausea and Vomiting Last Admin: 03/12/25 19:52 Dose: 4 mg Prednisone (Prednisone 20 Mg Tablet) 20 mg PO DAILY [facility] Last Admin: 03/13/25 08:31 Dose: 20 mg Sodium Chloride (0.9 % Sodium Chloride Flush 3 Ml Syringe) 3 ml IVFLUSH QSHIFT [facility] Last Admin: 03/13/25 08:26 Dose: Not Given Home Medications ?Medication ?Instructions ?Recorded ?Confirmed ?Last Taken ?Type acetaminophen 500 mg tablet 1,000 mg PO Q6H PRN pain 03/12/25 03/12/25 Unknown History ibuprofen 200 mg tablet 400 mg PO Q8H PRN Pain 03/12/25 03/12/25 Unknown History Exam Height,Weight and Vital Signs: Height 5 ft 3 in Weight 101 kg Last Vital Signs Temp 97.5 F 03/13/25 14:09 Pulse 77 03/13/25 14:09 Resp 16 03/13/25 14:09 BP 132/69 03/13/25 14:09 Pulse Ox 98 03/13/25 14:09 O2 Del Method Room Air 03/13/25 14:09 Pertinent Lab Results Pertinent Lab Results: Laboratory Tests 03/12/25 03/13/25 10:51 03:50 WBC 12.4 H 8.3 RBC 4.07 L 3.93 L Hgb 13.2 12.5 Hct 38.0 36.2 L MCV 93.4 92.1 MCH 32.4 31.8 MCHC 34.7 34.5 RDW 11.9 11.8 Plt Count 244 219 MPV 10.9 11.8 Immature Gran % (Auto) 0.4 Neut % (Auto) 74.7 H Lymph % (Auto) 16.4 L Haakon % (Auto) 7.7 Eos % (Auto) 0.5 Baso % (Auto) 0.3 Lymph # (Auto) 2.0 Haakon # (Auto) 1.0 Eos # (Auto) 0.1 Baso # (Auto) 0.0 Abs Immat Gran (auto) 0.05 H Absolute Neuts (auto) 9.3 H Absolute Nucleated RBC 0.000 0.000 Nucleated RBC % (auto) 0.0 0.0 Sodium 144 140 Potassium 3.8 4.1 Chloride 113 H 113 H Carbon Dioxide 25 21 L Anion Gap 10 L 10 L BUN 10 6 L Creatinine 0.63 0.56 Estim Creat Clear Calc 142.6 160.5 Estimated GFR > 60 > 60 Random Glucose 129 H 136 H Calcium 8.6 8.3 L Total Bilirubin 0.8 AST 27 ALT 26 Alkaline Phosphatase 68 Total Protein 6.9 Albumin 4.1 Urine Color Fluker A Urine Appearance Cloudy Urine pH 6.0 Ur Specific [place] 1.015 Urine Protein 30 (1+) H Urine Glucose (UA) Negative Urine Ketones Negative Urine Blood Large (3+) H Urine Nitrite Negative Ur Leukocyte Esterase Small (1+) H Urine RBC >20 H Urine WBC 11-20 H Ur Squamous Epith Cells 3-5 Urine Bacteria Trace Hyaline Casts 0-2 Urine Test NEGATIVE Airway Mallampati Class: II TM Dist: >3cm Neck ROM: Full Assessment and Plan Assessment Anesthesia Assessment: Anesthesia Plan Discussed and Chart Reviewed Final Anesthetic Review Family History of Problems with Anesthesia: No History of Problems with Anesthesia: No NPO: Yes ASA Class: III and Emergency Final Preanesthetic Review: No Changes in Pt Med Stat, Meds/Allgs Chart Reviewed, Consent Obtained/Reviewed and Anes Risks/Benef Reviewed Patient Risk: Intermediate Procedure Risk: Low Anesthetic Plan Anesthetic Plan: GA Disposition: Standard PACU
--- NOTE | 2025-03-13 17:07 | W.PM.OPN ---
Operative Note Operative Note Date of Service: 03/13/25 Narrative: PreOperative Diagnosis: Distal right ureteric stone with hydro uretero nephrosis Post Operative Diagnosis: Distal right ureteric stone with hydro uretero nephrosis Procedure: - cystoscopy, right retrograde - right dilatation of ureteric orifice under fluoroscopy - right ureteroscopy, laser lithotripsy, stone basketing - right stent placement Surgeon: Dr Minh Prado Anesthesia: General Indications for procedure: Distal right ureteric stone with hydro uretero nephrosis, elevated creatinine, pain Procedure: After informed consent was verified the patient was brought to the operating room and placed in a supine position. Anesthesia was administered per protocol. The patient was placed in a modified dorsal lithotomy position and prepped and draped in a sterile fashion. Safety pause time-out and side of surgery were confirmed. Images were available for review. Antibiotic administration confirmed. A 22 Russian cystoscope was inserted per urethra. The urethra was without abnormality. The bladder was normal in its entirety. Both ureteric orifices were seen in normal position . The right ureteric orifice was cannulated and a retrograde examination was performed. Small filling defects seen distal right ureter . A Sensor guidewire was placed up to the level of the renal pelvis under fluoroscopy. The rigid cystoscope was removed. A Awais dilator was placed over the Sensor guidewire and used to dilate the ureteric orifice under fluoroscopy. The dilator was removed. The semi rigid ureteral scope was placed alongside the Sensor guidewire. Stone encountered. Using a 365 micro holmium laser fiber the stone was broken into small pieces using a combination of hammer and dusting techiques. Stone fragments were removed from the ureter using a 2.4 Russian ZeroTip basket basket. Once the fragments were removed a decision was made to place a ureteric stent. Based on the height of the patient a 6 Fr x 24 cm stent was used. The string was removed from the stent prior to placement. A 6 Russian by 24 cm double-J stent was placed into the renal pelvis and bladder under a combination of fluoroscopy and direct visualization. The symphisis pubis was used as a radiographic marker to release the stent and good coil was seen within the bladder confirming position Proximal positioning of the stent was confirmed using fluoroscopy. The bladder was emptied. The patient tolerated the procedure well and was extubated in the operating room. They were transferred in stable condition to the recovery area. Pathology: Small fragments unable to recover Drains: Double J stent as described above
--- NOTE | 2025-03-13 17:13 | PM.DS ---
DS: Providers Provider Date of Service: 03/13/25 Date of admission: 03/12/25 12:37 Date of discharge: 03/13/25 Primary care physician: [facility] Consults: 03/12/25 13:00 Consult to Urology Routine Consulting Provider: [facility] Reason for consultation: moderate right hydro/right stone Attending physician on discharge: Pedrito Hua Discharging clinician: Maryann Gong DS: Diagnosis Discharge Diagnosis (1) Hydronephrosis with ureteral calculus: Status: Acute DS: Summary Hospital Course Hospital Course: From H&P on the day of admission This is a 35-year-old female with h/o asthma who presents to the emergency department with right flank pain. Onset of pain early this morning with associated urinary urgency. She denies any dysuria, fever, chills. In the emergency department workup was significant for leukocytosis of 12.4, urinalysis with 3+ blood and greater than [address] scan showed moderate right hydroureteronephrosis secondary to a 3 mm UVJ calculus. The emergency department discussed the case with the urology felt that the patient should be admitted to the medical service due to possible infection. She received a dose of IV ceftriaxone for possible infected stone and the decision was made to admit her for further management. moderate right hydroureteronephrosis due to 3 mm UVJ obstructing stone No evidence of sepsis. seen by Urology s/p cystoscopy, laser lithotripsy and right stent placement. Urine culture and blood cultures have remained negative to date. Initially treated with empiric antibiotics but as urine culture is negative no further antibiotics are required at this time. Kidney function has remained normal. white count resolved. no fever. will need outpatient follow-up with Urology for stent removal Tobacco use disorder Smoking cessation advised. Declines NRT Time Attestation Discharge Coordination Time (in mins): 32 Quality: Safe Use of Opioids Does Pt have an Active Cancer Diagnosis on the Problem List?: No Quality: Stroke Does the patient have a stroke diagnosis?: No Physical Exam Vital Signs: Vital Signs: Last Vital Signs Temp 97.5 F 03/13/25 14:09 Pulse 77 03/13/25 14:09 Resp 16 03/13/25 14:09 BP 132/69 03/13/25 14:09 Pulse Ox 98 03/13/25 14:09 O2 Del Method Room Air 03/13/25 14:09 BMI result Body Mass Index 39.4 Const: General: cooperative, comfortable, alert and awake Nutritional Appearance: obese Orientation/consciousness: patient oriented x3 Resp: Effort & Inspection: normal respiratory effort and able to speak in complete sentences Cardio: Rate: regular rate GI: Inspection: No distended Palpation (GI): Soft to palpation : Other: no CVA tenderness Neuro: General: patient oriented x3, moves all extremities and CN's II-XI intact bilaterally DS: Data Data Completed and Pending Labs on day of discharge: Laboratory Results - last 24 hr 03/13/25 03:50 WBC 8.3 RBC 3.93 L Hgb 12.5 Hct 36.2 L MCV 92.1 MCH 31.8 MCHC 34.5 RDW 11.8 Plt Count 219 MPV 11.8 Absolute Nucleated RBC 0.000 Nucleated RBC % (auto) 0.0 Sodium 140 Potassium 4.1 Chloride 113 H Carbon Dioxide 21 L Anion Gap 10 L BUN 6 L Creatinine 0.56 Estim Creat Clear Calc 160.5 Estimated GFR > 60 Random Glucose 136 H Calcium 8.3 L Preliminary micro results at discharge 03/12/25 12:44 Blood Culture - Preliminary Blood - Venous No growth after 24 hours. 03/12/25 12:44 Blood Culture - Preliminary Blood - Venous No growth after 24 hours. Discharge Plan Discharge Anticipated Discharge Date/Time: 03/13/25 17:26 Patient Disposition: Home, Self-Care Discharge Diagnosis: Hydronephrosis with ureteral calculus Referrals: Minh Prado MD [Physician, Urology] - 4 Weeks [place] [Primary Care Provider, Medical] - 1 Week Discharge Medications: New phenazopyridine [Pyridium] 100 mg tablet 100 mg PO TID PRN (Reason: pain) Qty: 6 0RF Continued ibuprofen 200 mg Tablet 400 mg PO Q8H PRN (Reason: Pain) acetaminophen 500 mg tablet 1,000 mg PO Q6H PRN (Reason: pain) Discharge Orders: Discharge Order (Routine); Ordered 03/13/25 Ordered By: Delaney Echols Activity on Discharge: As tolerated Stand Alone Forms: Patient Portal Discharge page, Work/School Release Print Language: Lithuanian Care Plan Goals: see below Health Concerns: Hydronephrosis with ureteral calculus Plan of Treatment: Urine culture was negative, UTI ruled out. No need for antibiotics Outpatient follow-up with Urology in 4-6 weeks for stent removal outpatient follow up with PCP as needed pyridium can cause yellow/orange discoloration of urine which is not harmful Assessment: right ureteral calculus with hydronephrosis s/p cystoscopy, lithotripsy and right stent placement Discharge Date/Time: 03/13/25 21:00
--- NOTE | 2025-03-13 20:56 | PC.NURSE ---
1999; Patient reported lower abdominal pain /, scheduled po tylenol administered, pt reported tolerating pain with scheduled medication. Patient has discharge orders in, discharge paperwork reviewed with patient, iv removed, awaiting ride to go home.
== END 2025-03-13 21:00 | disposition home or self-care (01) | DRG 446 ==
LOC: HO.ED 11:27 → HO.EDOVER 12:45 → HO.S3 03-13 07:56
PROVIDERS: Urology; Admitting Provider Physician Assistant Medical; Emergency Provider Emergency Medicine Emergency Medical Services; Visit Provider Physician Assistant Medical
PROC: 0TC68ZZ Extirpation of Matter from Right Ureter, Via Natural or Artificial Opening Endoscopic (ICD-10-PCS; principal; 2025-03-13 15:30)
DX: N13.6 Pyonephrosis (principal); F17.210 Nicotine dependence, cigarettes, uncomplicated; J45.20 Mild intermittent asthma, uncomplicated; Z71.6 Tobacco abuse counseling
CPT/HCPCS: 36415; 74176; 80048; 80053; 81001; 81003; 81025; 85025; 85027; 87040; 87086; 99285; C1758; C1769; C2617; J0696; J1100; J1171; J1885; J2003; J2270; J2405; J2704; J3010; J7120; Q9967

== ENCOUNTER → 2025-03-12 10:44 | Outpatient (BNV) | payer MEDICAID, SELFPAY | PROVIDERS: Emergency Provider Emergency Medicine Emergency Medical Services; Visit Provider Radiology Diagnostic Radiology | DX: N13.2 Hydronephrosis with renal and ureteral calculous obstruction (principal) | CPT/HCPCS: 74176 ==

== ENCOUNTER → 2025-03-12 12:37 | Outpatient (BNV) | payer MEDICAID, SELFPAY | PROVIDERS: Admitting Provider Physician Assistant Medical; Emergency Provider Emergency Medicine Emergency Medical Services; Visit Provider Urology | DX: N13.2 Hydronephrosis with renal and ureteral calculous obstruction (principal) | CPT/HCPCS: 99222 ==

== ENCOUNTER → 2025-03-12 12:37 | Outpatient (BNV) | payer MEDICAID, SELFPAY | PROVIDERS: Admitting Provider Physician Assistant Medical; Emergency Provider Emergency Medicine Emergency Medical Services; Visit Provider Physician Assistant Medical | DX: N13.2 Hydronephrosis with renal and ureteral calculous obstruction (principal) | CPT/HCPCS: 99223; 99239; 99499 ==